=== PATIENT | male | born 1965 | race Caucasian/White ===

== ENCOUNTER 2021-10-30 05:26 | Emergency (ER) | payer SELFPAY ==
[2021-10-30 05:35] VITALS: BP 104/80; PULSE 107; RESP 18; TEMP 36.8; O2SAT 93; BMI 21.6
--- NOTE | 2021-10-30 06:18 | XRR_ITS ---
PROCEDURE INFORMATION: Exam: XR Chest Exam date and time: 10/30/2021 6:36 AM Age: 56 years old Clinical indication: Patient HX: Coughing since yesterday; Additional info: Cough TECHNIQUE: Imaging protocol: Radiologic exam of the chest. Views: 1 view. COMPARISON: No relevant prior studies available. FINDINGS: Lungs: Unremarkable. No consolidation. Pleural spaces: Unremarkable. No pleural effusion. No pneumothorax. Heart/Mediastinum: Unremarkable. No cardiomegaly. Bones/joints: Unremarkable. Soft tissues: A skin fold is seen in the right upper hemithorax. XR/XR chest 1V portable [id number] IMPRESSION: There are no acute chest findings.
--- NOTE | 2021-10-30 06:18 | ECG_ITS ---
[facility] Test Date: 2021-10-30 Pat Name: Ulises Sauer Department: Room: Gender: Male License Examiner: : [id number] Requested By: Man Merida Order Number: [id number] Jacobo MD: Adin Garcia M.D. Measurements Intervals [place] Rate: 105 P: 72 TN: 131 QRS: 149 QRSD: 94 T: 72 QT: 310 QTc: 410 Interpretive Statements SINUS TACHYCARDIA INDETERMINATE AXIS INCOMPLETE RIGHT BUNDLE BRANCH BLOCK [90+ ms QRS DURATION, TERMINAL R IN V1/V2, 40+ ms S IN I/aVL/V4/V5/V6] No previous ECG available for comparison Electronically Signed On 10-30-2021 17:32:35 CDT by Adin Garcia M.D. [id number]
--- NOTE | 2021-10-30 06:27 | W.ED.GENADLT ---
HPI - General Adult General: Chief complaint: Headache Stated complaint: headache/cold & hot sweats/cough Time Seen by Provider: 10/30/21 05:47 Source: patient Mode of arrival: ambulatory Limitations: no limitations History of Present Illness: 56-year-old male presents emergency room complaining of having hot and cold flashes generalized body aches cold sweats for the last 2 to 3 days. He denies any vomiting or diarrhea. Patient is a chronic smoker smoking a pack a day for the last 43 years. He has a baseline cough which remains unchanged. He does get short of breath at times. He denies any dysuria urgency frequency abdominal pain. Onset (ago): day(s) (2-3) Severity: moderate Relieving factors: none Exacerbating factors: none Associated symptoms: Reports cough, diaphoresis, decreased appetite and malaise; Deny chest pain, confusion, dyspnea, fevers/chills, headache(s), nausea, rash, palpitations, seizures, short of breath, syncope, vomiting or weakness Treatments prior to arrival: none Review of Systems Const: Reports: fever(s), chills, fatigue, malaise and diaphoresis ENMT: Denies: throat pain, ear or mastoid pain, nasal discharge or nasal congestion Card: Denies: chest pain, palpitations, edema, swelling of feet/ankles or syncope Resp: Reports: non-productive cough and wheezing; Denies: dyspnea GI: Denies: abdominal pain, nausea, vomiting, hematemesis or coffee ground emesis : Denies: flank pain, difficulty urinating, dysuria, urinary frequency or urinary urgency Skin/Breast: Denies: rash Neuro: Denies: headache(s) or confusion PFSH ED PFSH: Medical History (Updated 10/30/21 @ 09:19 by Man Solorzano DO) COPD (chronic obstructive pulmonary disease) Surgical History (Updated 10/30/21 @ 06:30 by Man Solorzano DO) History of hernia repair Social History (Updated 10/30/21 @ 06:30 by Man Solorzano DO) Smoking and tobacco status: current every day smoker Alcohol intake: never Physical Exam Const: COMMON NORMALS: no acute distress GENERAL APPEARANCE: cooperative and comfortable ORIENTATION/CONSCIOUSNESS: Yes awake, Yes oriented to person, Yes oriented to place and Yes oriented to time HENMT: COMMON NORMALS: normocephalic, atraumatic and hearing grossly normal bilaterally HEAD & SCALP: normocephalic and atraumatic Neck/C-Spine: COMMON NORMALS: no JVD Resp: COMMON NORMALS: normal respiratory effort, No retractions and No use of accessory muscles AUSCULTATION: rhonchi (Mild) and wheezes Cardio: COMMON NORMALS: no JVD, regular rate, regular rhythm and No murmurs present (Cardio) RATE: regular rate RHYTHM: regular rhythm GI: COMMON NORMALS: Soft to palpation and No hepatosplenomegaly present; negative for Normal to inspection, nondistended, normoactive bowel sounds present AUSCULTATION: Yes normoactive bowel sounds PALPATION: Yes Soft to palpation, No Tenderness to palpation present (GI), No Guarding due to palpation present (GI) and Yes No hepatosplenomegaly present Extremity: COMMON NORMALS: normal to inspection, capillary refill normal, no clubbing, cyanosis or edema, no calf tenderness and no pedal edema Neuro: SENSORIUM/ORIENTATION: Yes oriented to person, Yes oriented to place and Yes oriented to time Skin: COMMON NORMALS: no rashes or lesions noted GENERAL SKIN EXAM: no rashes or lesions noted Course Vital Signs: Vital signs: Vital Signs Temperature 98.2 F 10/30/21 05:35 Pulse Rate 92 10/30/21 09:32 Respiratory Rate 14 10/30/21 09:32 Blood Pressure 90/67 10/30/21 09:32 Pulse Oximetry 94 10/30/21 09:32 [facility] - General Adult Medical Decision Making Labs and imaging reviewed no remarkable findings. Patient at this point he is feeling fine he has exacerbation of COPD may have some gastroenteritis exam is benign labs reviewed we will start on Spiriva Respimat, steroid taper and has had this for some time we will put him on a course of doxycycline as well given albuterol to use as needed encourage smoking cessation and follow-up with his primary care within the next week Medical Records I reviewed the patient's medical records. Lab Data I reviewed the patient's lab results. : 10/30/21 06:35 10/30/21 06:35 Radiology Impressions Chest X-Ray 10/30/21 06:18 IMPRESSION: There are no acute chest findings. Laboratory Results WBC 8.9 10^3/uL (4.0-10.0) 10/30/21 06:35 RBC 5.18 10^6/uL (4.1-5.3) 10/30/21 06:35 Hgb 16.5 g/dL (11.7-16.6) 10/30/21 06:35 Hct 47.0 % (42.0-52.0) 10/30/21 06:35 MCV 90.7 fl (80-94) 10/30/21 06:35 MCH 31.9 pg (28.0-34.0) 10/30/21 06:35 MCHC 35.1 g/dL (30.0-36.0) 10/30/21 06:35 RDW 11.9 % (12.1-15.1) L 10/30/21 06:35 Plt Count 230 10^3/cmm (130-400) 10/30/21 06:35 MPV 10.2 fL (7.4-10.4) 10/30/21 06:35 Neut % (Auto) 74.2 % 10/30/21 06:35 Lymph % (Auto) 14.2 % 10/30/21 06:35 Clinch % (Auto) 11.2 % 10/30/21 06:35 Eos % (Auto) 0.0 % 10/30/21 06:35 Baso % (Auto) 0.2 % 10/30/21 06:35 Neut # (Auto) 6.58 10^3/uL (1.8-7.7) 10/30/21 06:35 Lymph # (Auto) 1.3 10^3/uL (0.8-4.8) 10/30/21 06:35 Clinch # (Auto) 1.0 10^3/uL (0.2-0.9) H 10/30/21 06:35 Eos # (Auto) 0.0 10^3/uL (0.0-0.8) 10/30/21 06:35 Baso # (Auto) 0.0 10^3/uL (0.0-0.1) 10/30/21 06:35 Nucleated RBC % (auto) 0 % 10/30/21 06:35 Nucleated RBCs # 0.0 /100WBC 10/30/21 06:35 Specimen Type Arterial 10/30/21 06:25 Sample Site Radial, left 10/30/21 06:25 ABG pH 7.41 (7.35-7.45) 10/30/21 06:25 ABG pCO2 39.8 mmHg (35-45) 10/30/21 06:25 ABG pO2 56.3 mmHg (80.0-100.0) L 10/30/21 06:25 ABG HCO3 25.4 mmol/L (22-26) 10/30/21 06:25 ABG O2 Saturation 91.0 10/30/21 06:25 ABG Base Excess 0.8 mmol/L (-2.0-2.0) 10/30/21 06:25 Brian Test Pos 10/30/21 06:25 A-a O2 Gradient 5.9 mmHg (5-10) 10/30/21 06:25 Hematocrit 50.7 % (42-52) 10/30/21 06:25 Hgb O2 Saturation 89.1 % (95-100) L 10/30/21 06:25 Carboxyhemoglobin 1.4 %THgb (0.4-20.1) 10/30/21 06:25 Methemoglobin 0.8 % (0.4-1.5) 10/30/21 06:25 Total Hemoglobin 16.5 g/dL (14-18) 10/30/21 06:25 Sodium 133.0 mmol/L (131-143) 10/30/21 06:25 Potassium 3.6 mmol/L (3.5-5.0) 10/30/21 06:25 Glucose 106.0 mg/dL (70-115) 10/30/21 06:25 Ionized Calcium 1.2 mmol/L (1.1-1.4) 10/30/21 06:25 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3 mg/dL (0.15-1.2) 10/30/21 06:35 AST 14 U/L (0-40) 10/30/21 06:35 ALT 11 U/L (0-41) 10/30/21 06:35 Alkaline Phosphatase 69 IU/L (40-130) 10/30/21 06:35 Total Protein 7.0 g/dL (6.6-8.7) 10/30/21 06:35 Albumin 3.9 g/dL (3.5-5.2) 10/30/21 06:35 Globulin 3.1 g/dL (1.3-4.6) 10/30/21 06:35 Urine Color Yellow (Yellow) 10/30/21 08:30 Urine Appearance Clear (CLEAR) 10/30/21 08:30 Urine pH 5 (5-7) 10/30/21 08:30 Ur Specific Alligator 1.020 (1.005-1.030) 10/30/21 08:30 Urine Protein Neg (Negative) 10/30/21 08:30 Urine Glucose (UA) Norm (Normal) 10/30/21 08:30 Urine Ketones 1+ (Negative) H 10/30/21 08:30 Urine Blood 2+ (Negative) H 10/30/21 08:30 Urine Nitrate Negative (Negative) 10/30/21 08:30 Urine Bilirubin Neg (Negative) 10/30/21 08:30 Urine Urobilinogen 1 mg/dL (Negative) H 10/30/21 08:30 Ur Leukocyte Esterase Negative (Negative) 10/30/21 08:30 Urine RBC 0-4 /hpf (0-2) H 10/30/21 08:30 Urine WBC 0-4 /hpf (0-5) H 10/30/21 08:30 Ur Squamous Epith Cells None /hpf (0-5) 10/30/21 08:30 Amorphous Sediment Not Reportable 10/30/21 08:30 Urine Bacteria Trace /hpf (NONE) 10/30/21 08:30 Hyaline Casts 0-4 /lpf H 10/30/21 08:30 Urine Mucus 2+ /hpf 10/30/21 08:30 Discharge Plan Discharge Patient Disposition: Home Clinical Impression: COPD (chronic obstructive pulmonary disease) Prescriptions: New doxycycline hyclate 100 mg capsule 100 mg PO BID 10 Days Qty: 20 0RF Medrol (Zak) 4 mg tablets,dose pack See Rx Instructions .ROUTE .COMPLEX Qty: 21 0RF Rx Instructions: orally per package directions albuterol sulfate 90 mcg/actuation HFA aerosol inhaler 2 inh INHALATION Q4H PRN (Reason: shortness of breath or wheezing) Qty: 18 0RF Spiriva Respimat 1.25 mcg/actuation mist 2 inh inhalation DAILY Qty: 4 0RF Discharge Orders: Discharge ED (Routine); Ordered 10/30/21 Ordered By: Man Solorzano Discharge Diet: Usual diet Discharge Activity: Limit activity as instructed Patient Instructions: Opioid Safety Activity Restrictions/Additional Instructions: Follow-up with primary care within the week. Coding Level of Care Code ED Data Center Technician for Monserrat Fwd Exam Comprehensive
[2021-10-30 06:37] LABS: ABG PCO2 39.8 mmHg (35-45); ABG PH Result 7.41 (7.35-7.45); Alveolar-Arterial Oxygen Gradi 5.9 mmHg (5-10); Arterial Blood Gas Hematocrit 50.7 % (42-52); Base Excess ABG 0.8 mmol/L (-2.0-2.0); Blood Gas Allen Test Pos; Blood Gas Operator Identificat WALCI; Blood Gas Sample Site Radial, left; Blood Gas Sample Type Arterial; Carboxyhemoglobin 1.4 %THgb (0.4-20.1); HCO3 ABG 25.4 mmol/L (22-26); HGB O2 Sat 89.1 % (95-100); Ionized Calcium Level - ABG 1.2 mmol/L (1.1-1.4); Methemoglobin 0.8 % (0.4-1.5); PO2 ABG 56.3 mmHg (80.0-100.0); Potassium Level - ABG 3.6 mmol/L (3.5-5.0); Total Hemoglobin 16.5 g/dL (14-18)
[2021-10-30 06:47] LABS: Basophils % 0.2 %; Hemoglobin 16.5 g/dL (11.7-16.6); Lymphocytes # 1.3 10^3/uL (0.8-4.8); Lymphocytes % 14.2 %; Mean Corpuscular HGB Conc 35.1 g/dL (30.0-36.0); Mean Corpuscular Hemoglobin 31.9 pg (28.0-34.0); Mean Corpuscular Volume 90.7 fl (80-94); Mean Platelet Volume 10.2 fL (7.4-10.4); Monocytes % 11.2 %; Neutrophils # 6.58 10^3/uL (1.8-7.7); Neutrophils % 74.2 %; Nucleated Red Blood Cells % 0 %; Platelet Count 230 10^3/cmm (130-400); Red Blood Count 5.18 10^6/uL (4.1-5.3); Red Cell Distribution Width 11.9 % (12.1-15.1); White Blood Count 8.9 10^3/uL (4.0-10.0)
[2021-10-30 07:03] LABS: Alanine Aminotransferase 11 U/L (0-41); Albumin Level 3.9 g/dL (3.5-5.2); Alkaline Phosphatase 69 IU/L (40-130); Anion Gap 13.5 (5-19); Aspartate Amino Transferase 14 U/L (0-40); Blood Urea Nitrogen 13 mg/dL (6-20); Calcium 8.6 mg/dL (8.5-10.5); Carbon Dioxide 25 mmol/L (22-29); Chloride 98 mmol/L (98-107); Globulin 3.1 g/dL (1.3-4.6); Glomerular Filtration Rate 115.8 mL/min (90-130); Glucose 99 mg/dL (65-115); Osmolality Calculated 276 mOsm/kg (285-295); Potassium 3.5 mmol/L (3.5-5.1); Sodium 133 mmol/L (136-145); Total Bilirubin 0.3 mg/dL (0.15-1.2)
[2021-10-30] MEDS: ipratropium-albuterol 3 mL Neb INHALATION (08:49)
[2021-10-30 08:50] VITALS: PULSE 90; RESP 18; O2SAT 94
[2021-10-30 08:51] VITALS: O2SAT 91; O2SAT 93
[2021-10-30 08:56] VITALS: PULSE 91; RESP 18; O2SAT 94
[2021-10-30 09:18] LABS: Blood Urine 2+ (Negative); Glucose Urine UA Norm (Normal); Ketones Urine 1+ (Negative); Nitrate Urine Negative (Negative); Protein Urine Neg (Negative); Urine Appearance Clear (CLEAR); Urine Color Yellow (Yellow); pH Urine 5 (5-7)
[2021-10-30 09:19] LABS: Add Urine Microscopic? YES; Bilirubin Urine Neg (Negative); Leukocyte Esterase Urine Negative (Negative); Urobilinogen Urine 1 mg/dL (Negative)
[2021-10-30 09:30] VITALS: BP 90/67; PULSE 94; RESP 15; O2SAT 94
[2021-10-30 09:32] VITALS: BP 90/67; PULSE 92; RESP 14; O2SAT 94
[2021-10-30 09:39] LABS: Bacteria Urine TRACE /hpf; RBC Urine 0-4 /hpf (0-2); WBC Urine 0-4 /hpf (0-5)
[2021-10-30 09:40] LABS: Add Urine Culture? No; Hyaline Casts Urine 0-4 /lpf; Mucus Urine 2+ /hpf
== END 2021-10-30 09:34 | disposition home or self-care (01) ==
PROVIDERS: Emergency Provider Family Medicine
DX: J44.9 Chronic obstructive pulmonary disease, unspecified (principal); F17.210 Nicotine dependence, cigarettes, uncomplicated
CPT/HCPCS: 36600; 71045; 80051; 80053; 81001; 82330; 82805; 85025; 93005; 94640; 96374; 99285; J2930